=== PATIENT | female | born 1950 | race Caucasian/White ===

== ENCOUNTER 2017-03-21 03:26 | Inpatient (IN) | payer MEDICARE ==
[~2017-03-21 03:26] MED LIST: CIPRO DPS500 MG PO; NOVOLOG MI100 UNIT/2 SQ; TYLENOL325 MG PO
[2017-03-25] MEDS ORDERED: PEPCID DPS20 MG PO (13:21)
[2017-03-25] MEDS ORDERED: DITROPAN-DPS5 MG PO (13:21)
[2017-03-25] MEDS ORDERED: NOVOLOG100 UNIT/2 SQ (13:23)
== END 2017-03-24 15:28 | disposition home or self-care (01) | DRG 638 ==
DX: E13.10 Other specified diabetes mellitus with ketoacidosis without coma (principal); N17.9 Acute kidney failure, unspecified; E86.0 Dehydration; R79.89 Other specified abnormal findings of blood chemistry; Z79.4 Long term (current) use of insulin; Z98.890 Other specified postprocedural states; Z87.440 Personal history of urinary (tract) infections